=== PATIENT | male | born 1980 | race Caucasian/White ===

== ENCOUNTER → 2016-09-13 | Emergency (ER) | payer SELFPAY ==
[~2016-09-13] VITALS: Ht 172.7 cm; Wt 196.0 kg
[~2016-09-13] MED LIST: FLEXERIL 1010 MG/TAB PO; HCTZ 25MG TAB25 MG PO; NORCO 325 MG-51 TAB PO; NORVASC 10MG10 MG PO; PAXIL 20MG20 MG PO; PERCOCET 325 MG1 TA2 PO; SYNTHROID0.1 MG/TAB PO; VISTARIL 2525 MG/CAP PO; ZESTRIL 20MG TA20 MG PO
[2016-09-13 12:41] VITALS: TEMP 98
[2016-09-13 14:29] LABS: AMPHETAMINE URINE POSITIVE; BARBITURATES URINE NEGATIVE; BENZODIAZEPINES URINE NEGATIVE; BUPRENORPHINE URINE NEGATIVE; METHADONE URINE NEGATIVE; OPIATES URINE NEGATIVE; OXYCODONE URINE NEGATIVE; PH 6 (5-8); PHENCYCLIDINE URINE NEGATIVE; PROPOXYPHENE URINE NEGATIVE; THC CANNABINOIDS URINE NEGATIVE; URINE APPEARANCE Clear; URINE BILIRUBIN Negative (NEGATIVE); URINE BLOOD Negative (NEGATIVE); URINE COLOR Yellow; URINE GLUCOSE Negative (NEGATIVE); URINE KETONE Negative (NEGATIVE); URINE UROBILINOGEN Negative (NEGATIVE)
[2016-09-13 14:30] LABS: SQUAMOUS EPITHELIAL 0-2 /hpf; URINE WBC 0-2 /hpf
[2016-09-13 14:30] LABS: ADJUSTED CALCIUM 8.8 mg/dL (8.4-10.2); ALANINE AMINOTRANSFERASE 35 U/L (21-72); ALKALINE PHOSPHATASE 65 U/L (50-136); ANION GAP 10 mmol/L (7-16); BASO # 0.1 (0.0-0.2); BASO % 0.6 % (0.0-2.0); BILIRUBIN,TOTAL 0.8 mg/dL (0.0-1.0); BLOOD UREA NITROGEN 11 mg/dL (9-20); CALCIUM 8.8 mg/dL (8.4-10.2); CARBON DIOXIDE 26 mmol/L (22-30); CHLORIDE 102 mmol/L (98-107); EOS # 0.3 (0.0-0.7); EOS % 2.7 % (0-4.0); GLUCOSE 109 mg/dL (74-106); GRAN # 8.2 (1.4-6.5); GRAN % 68.6 % (42.2-75.2); HEMATOCRIT 42.5 % (42.0-52.0); HEMOGLOBIN 14.1 g/dl (13.5-18.0); LYMPH # 2.7 (1.2-3.4); LYMPH % 22.6 % (20.0-51.0); MEAN CELL VOLUME 88 fl (80.0-100.0); MEAN CORPUSCULAR HEMOGLOBIN 29 pg (27.0-31.0); MEAN CORPUSCULAR HGB CONC 33 g/dl (33.0-37.0); MEAN PLATELET VOLUME 11.9 fl (7.4-10.4); MONO # 0.6 (0.1-0.6); MONO % 5.1 % (1.7-9.3); PLATELET COUNT 236 K/mm3 (130-400); POTASSIUM 3.6 mmol/L (3.4-5.0); RED BLOOD COUNT 4.83 M/mm3 (4.20-5.60); REDCELL DISTRIBUTION WIDTH-CV 14.1 % (11.5-14.5); SODIUM 139 mmol/L (137-145); TOTAL PROTEIN 7.6 gm/dL (6.4-8.2)
[2016-09-13 14:35] LABS: ACETAMINOPHEN < 10 ug/mL (10-30); SALICYLATE < 1.0 mg/dL
[2016-09-13 17:21] VITALS: BP 178/111; PULSE 85
== END | disposition home or self-care (01) ==
LOC: COL.ER 12:37
PROVIDERS: Physician Assistant
DX: F15.959 Other stimulant use, unspecified with stimulant-induced psychotic disorder, unspecified (principal); F32.9 Major depressive disorder, single episode, unspecified; F41.9 Anxiety disorder, unspecified; L98.9 Disorder of the skin and subcutaneous tissue, unspecified; R45.851 Suicidal ideations; I10 Essential (primary) hypertension; T46.4X6A Underdosing of angiotensin-converting-enzyme inhibitors, initial encounter; T46.1X6A Underdosing of calcium-channel blockers, initial encounter; Z91.120 Patient's intentional underdosing of medication regimen due to financial hardship